=== PATIENT | male | born 1990 | race Caucasian/White ===

== ENCOUNTER → 2017-09-05 | Outpatient (CLI) | payer MEDICARE, MEDICAID | LOC: COL.VAS 13:22 | DX: I10 Essential (primary) hypertension (principal); I51.7 Cardiomegaly ==

== ENCOUNTER → 2020-04-06 | Outpatient (CLI) | payer MEDICARE, MEDICAID ==
[~2020-04-06] MED LIST: CELEXA40 MG PO; DESYREL 100MG100 MG PO; KLONOPIN 0.5MG0.5 MG PO; LASIX 20MG TABL20 MG PO; MOBIC 7.5MG7.5 MG PO; NORCO 325 MG-51 TAB PO; PROTONIX 40MG T40 MG PO; SINGULAIR 110 MG/TAB PO; TOPROL XL100 MG PO; WELLBUTRIN SR100 M1 PO
== END ==
LOC: SDCO 03-05 11:00 → COL.LAB 08:00 → SDCO 04-07 11:00 → EDSTATUS 04-28 11:00 → SDCO 04-28 11:00
DX: Z12.11 Encounter for screening for malignant neoplasm of colon (principal); D36.9 Benign neoplasm, unspecified site; Z20.828 Contact with and (suspected) exposure to other viral communicable diseases

== ENCOUNTER 2020-04-28 08:20 | Day surgery (SDC) | payer MEDICARE, MEDICAID ==
[~2020-04-28] VITALS: Ht 188 cm; Wt 206.1 kg
[2020-04-28] MEDS ORDERED: PROTONIX 40MG T40 MG PO (08:51)
[2020-04-28] MEDS ORDERED: DESYREL 100MG100 MG PO (08:52)
[2020-04-28] MEDS ORDERED: KLONOPIN 0.5MG0.5 MG PO (08:52)
[2020-04-28] MEDS ORDERED: WELLBUTRIN SR100 M1 PO (08:53)
[2020-04-28] MEDS ORDERED: LASIX 20MG TABL20 MG PO (08:53)
[2020-04-28] MEDS ORDERED: MOBIC 7.5MG7.5 MG PO (08:54)
[2020-04-28] MEDS ORDERED: CELEXA40 MG PO (08:55)
[2020-04-28] MEDS ORDERED: SINGULAIR 110 MG/TAB PO (08:55)
[2020-04-28] MEDS ORDERED: TOPROL XL100 MG PO (08:55)
[2020-04-28] MEDS ORDERED: NORCO 325 MG-51 TAB PO (08:56)
[2020-04-28 09:10] VITALS: BP 144/94; PULSE 79; TEMP 98.4
[2020-04-28 10:25] VITALS: BP 146/86; PULSE 75; TEMP 97.7
[2020-04-28 10:40] VITALS: BP 157/90; PULSE 79
[2020-04-28 10:55] VITALS: BP 132/85; PULSE 77
== END 2020-04-28 11:05 | disposition home or self-care (01) ==
LOC: SDCO 08:20
DX: Z12.11 Encounter for screening for malignant neoplasm of colon (principal); K63.5 Polyp of colon; K21.9 Gastro-esophageal reflux disease without esophagitis; K58.0 Irritable bowel syndrome with diarrhea; F09 Unspecified mental disorder due to known physiological condition; E66.9 Obesity, unspecified; G47.33 Obstructive sleep apnea (adult) (pediatric); E66.01 Morbid (severe) obesity due to excess calories; F32.9 Major depressive disorder, single episode, unspecified; F41.9 Anxiety disorder, unspecified; F43.10 Post-traumatic stress disorder, unspecified; Z68.43 Body mass index [BMI] 50.0-59.9, adult; Z88.1 Allergy status to other antibiotic agents
CPT/HCPCS: 32161